=== PATIENT | male | born 1965 | race Caucasian/White ===

== ENCOUNTER 2023-01-21 11:41 | Emergency (ER) | payer MEDICAID ==
[~2023-01-21] VITALS: Ht 165.1 cm; Wt 72.6 kg
[2023-01-21 11:43] VITALS: BP 145/72; PULSE 72; RESP 20; TEMP 98; O2SAT 98
[2023-01-21] MEDS ORDERED: KETOROLAC 60 MG/2 ML VIAL IM ONE (12:00)
[2023-01-21] MEDS ORDERED: ONDANSETRON 4 MG ODT PO ONE (12:05)
[2023-01-21 12:13] LABS: BASOPHILS # (AUTO) 0.1 K/uL (0.00-0.22); BASOPHILS % (AUTO) 0.5 % (0.0-2.0); EOSINOPHILS # (AUTO) 0.1 K/uL (0-0.4); HEMATOCRIT 45.3 % (36-52); HEMOGLOBIN 15.4 g/dL (12.0-18.0); LYMPHOCYTES # (AUTO) 1.1 K/uL (2.0-11.5); LYMPHOCYTES % (AUTO) 11.1 % (20.5-51.1); MEAN CORPUSCULAR HEMOGLOBIN 31 pg (27-31); MEAN CORPUSCULAR HGB CONC 34 g/dL (33-37); MEAN CORPUSCULAR VOLUME 90.9 fL (80-94); MONOCYTES # (AUTO) 0.4 K/uL (0.8-1.0); MONOCYTES % (AUTO) 3.6 % (1.7-9.3); NEUTROPHILS # (AUTO) 8.4 K/uL (1.8-7.7); NEUTROPHILS % (AUTO) 83.8 % (42.2-75.2); PLATELET COUNT (AUTO) 206 K/uL (140-450); RED BLOOD CELL COUNT(AUTO) 4.98 MIL/uL (4.20-6.10); RED CELL DISTRIBUTION WIDTH 13.6 % (11.6-13.7)
[2023-01-21 12:32] LABS: ALBUMIN 4.4 g/dL (3.4-5.0); ANION GAP 15.2 (8-16); CALCIUM 8.9 mg/dL (8.5-10.1); CARBON DIOXIDE 26.1 mmol/L (21-32); POTASSIUM 4.3 mmol/L (3.5-5.1); TOTAL BILIRUBIN 0.6 mg/dL (0.0-1.0); TOTAL PROTEIN, SERUM 8.7 g/dL (6.4-8.2)
[2023-01-21] MEDS ORDERED: MORPHINE SULFATE 4 MG/ML SYR IM ONE (12:55)
[2023-01-21] MEDS ORDERED: ONDA8TAB87 PO (13:22)
[2023-01-21] MEDS ORDERED: IBUP-2213 PO (13:22)
[2023-01-21] MEDS ORDERED: MAGN296S48 PO (13:22)
[2023-01-21] MEDS ORDERED: DOCU-299 PO (13:22)
[2023-01-21 13:30] VITALS: BP 140/75; PULSE 75; RESP 20; TEMP 98
[2023-01-21 14:09] VITALS: O2SAT 98
== END 2023-01-21 13:30 | disposition home or self-care (01) ==
LOC: MED 11:41
DX: R10.84 Generalized abdominal pain (principal); K59.00 Constipation, unspecified; I10 Essential (primary) hypertension; Z79.899 Other long term (current) drug therapy
CPT/HCPCS: 36415; 74176; 80053; 83690; 85025; 96372; 99285; J1885; J2270; Q0162